=== PATIENT | male | born 1955 ===

== ENCOUNTER 2019-09-03 15:16 | Outpatient (CLI) | payer OTHER ==
[2019-09-03 16:04] LABS: Anion Gap 11 mmol/L (10-20); BUN (Urea Nitrogen) 19 mg/dL (8.4-25.7); Calc. Creatinine Clearance 0 mL/min (70-130); Calcium 7.2 mg/dL (7.8-10.44); Carbon Dioxide 21 mmol/L (23-31); Chloride 113 mmol/L (98-107); Estimated GFR-MDRD 90; Glucose 133 mg/dL (80-115); Potassium 3.4 mmol/L (3.5-5.1); Sodium 142 mmol/L (136-145)
== END 2019-09-03 15:17 | disposition home or self-care (01) ==
LOC: NAV LABSP 15:16
PROVIDERS: ATTEND Nurse Practitioner Adult Health
DX: R18.0 Malignant ascites (principal)
CPT/HCPCS: 80048